=== PATIENT | female | born 1955 | race Caucasian/White ===

== ENCOUNTER 2023-06-15 09:38 | Day surgery (SDC) | payer BC, MEDICARE ==
[2023-06-15] MEDS: Polymyxin B/Trimethoprim 10 ML Bottle EYERT SCH ×4 (07:42→10:03)
[2023-06-15] MEDS: Brimonidine 0.2% Ophth Soln 5 ML Bottle EYERT SCH ×4 (07:47→10:03)
[2023-06-15] MEDS: Phenylephrine 2.5% Ophth Soln 2 ML Bot EYERT SCH ×5 (07:52→09:43)
[2023-06-15] MEDS: Tropicamide 1% Ophth Soln 3 ML Bottle EYERT SCH ×5 (07:58→08:46)
[2023-06-15] MEDS: Tetracaine HCl/PF 0.5% 4 ML Bottle EYEBOTH SCH ×5 (09:29→09:51)
[2023-06-15] MEDS: Lidocaine 1% PF 2 ML SDV INJECT SCH ×2 (09:49→09:51)
[2023-06-15] MEDS: Cefuroxime 10 MG/ML SYRINGE EYERT SCH ×2 (09:50→10:02)
[2023-06-15] MEDS: Pilocarpine 4% Ophth Soln 15 ML Bot EYERT SCH ×2 (09:50→10:03)
== END 2023-06-15 10:13 | disposition home or self-care (01) ==
LOC: JD.SDS 09:38
PROVIDERS: ATTEND Ophthalmology
DX: H25.811 Combined forms of age-related cataract, right eye (principal); I10 Essential (primary) hypertension; M19.90 Unspecified osteoarthritis, unspecified site; E78.00 Pure hypercholesterolemia, unspecified; Z79.899 Other long term (current) drug therapy
CPT/HCPCS: 66984; A9270; J0697; V2788; 00142; J3490

== ENCOUNTER 2023-07-03 08:45 | Day surgery (SDC) | payer MEDICARE ==
[~2023-07-03 08:45] MED LIST: Cefuroxime 10 MG/ML SYRINGE EYELF SCH; Lidocaine 1% PF 2 ML SDV INJECT SCH; Pilocarpine 4% Ophth Soln 15 ML Bot EYELF SCH; Tetracaine HCl/PF 0.5% 4 ML Bottle EYEBOTH SCH
[2023-07-03] MEDS: Polymyxin B/Trimethoprim 10 ML Bottle EYELF SCH ×3 (09:06→10:59)
[2023-07-03] MEDS: Brimonidine 0.2% Ophth Soln 5 ML Bottle EYELF SCH ×3 (09:08→10:59)
[2023-07-03] MEDS: Phenylephrine 2.5% Ophth Soln 2 ML Bot EYELF SCH ×5 (09:11→10:34)
[2023-07-03] MEDS: Tropicamide 1% Ophth Soln 3 ML Bottle EYELF SCH ×4 (09:15→09:41)
[2023-07-03] MEDS: Proparacaine 0.5% Ophth Soln 15 ML Bottle EYEBOTH SCH ×4 (10:20→10:45)
== END 2023-07-03 11:08 | disposition home or self-care (01) ==
LOC: JD.SDS 08:45
PROVIDERS: ATTEND Ophthalmology
DX: H25.812 Combined forms of age-related cataract, left eye (principal); H02.831 Dermatochalasis of right upper eyelid; H02.834 Dermatochalasis of left upper eyelid; H57.813 Brow ptosis, bilateral; H16.103 Unspecified superficial keratitis, bilateral; H16.223 Keratoconjunctivitis sicca, not specified as Sjogren's, bilateral; I10 Essential (primary) hypertension; Z79.899 Other long term (current) drug therapy
CPT/HCPCS: 66984; A9270; J0697; V2788; J3490

== ENCOUNTER 2025-02-02 17:57 | Emergency (ER) | payer MEDICARE, OTHER ==
[2025-02-02 18:35] LABS: APPEARANCE,URINE TURBID (Clear); GLUCOSE,URINE NEGATIVE (Negative); OCCULT BLOOD,URINE 2+ (Negative)
[2025-02-02 18:48] LABS: BASOPHILS ABSOLUTE AUTO 0.0 K/mm3 (0.0-0.2); BASOPHILS PERCENT AUTO 0.3 % (0.0-1.0); EOSINOPHILS ABSOLUTE AUTO 0.4 K/mm3 (0.0-0.4); EOSINOPHILS PERCENT AUTO 3.2 % (0.0-6.0); IMMATURE GRAN ABSOLUTE AUTO 0.03 K/mm3 (0.00-0.05); IMMATURE GRAN PERCENT AUTO 0.3 % (0.0-0.4); LYMPHOCYTES ABSOLUTE AUTO 1.6 K/mm3 (1.0-4.8); LYMPHOCYTES PERCENT AUTO 13.9 % (24.0-44.0); MEAN PLATELET VOLUME 9.5 fl (9.4-12.3); MONOCYTES ABSOLUTE AUTO 0.6 K/mm3 (0.0-0.8); MONOCYTES PERCENT AUTO 5.2 % (0.0-8.0); NEUTROPHILS ABSOLUTE AUTO 9.1 K/mm3 (1.8-7.7); NEUTROPHILS PERCENT AUTO 77.1 % (41.0-71.0); NRBC ABSOLUTE 0.00 (0.00-0.02); NRBC PERCENT 0.0 % (0.0-0.2); PLATELET COUNT,PLT 293 K/mm3 (150-400); RED BLOOD CELL COUNT 4.51 M/mm3 (4.10-5.30); WHITE BLOOD CELL COUNT,WBC 11.76 K/mm3 (3.9-11.3)
[2025-02-02 18:54] LABS: WBC CLUMPS,URINE FEW /hpf (NOT SEEN)
[2025-02-02 19:10] LABS: A/G RATIO 1.0 (1-2); ALANINE AMINOTRANSFERASE,ALT 32.0 U/L (14-59); ASPARTATE AMNIOTRANSFERASE,AST 15.0 U/L (15-37); BILIRUBIN TOTAL 0.3 mg/dL (0.2-1.0); BLOOD UREA NITROGEN,BUN 14.0 mg/dL (7-18); CARBON DIOXIDE,CO2 27.0 mEq/L (21-32); CHLORIDE,CL 104.0 mEq/L (98-107); CREATININE 0.9 mg/dL (0.55-1.02); EST CRCL DRUG DOSING (CG) 47.43 mL/min; ESTIMATED GFR 68.0 mL/min (>60); GLUCOSE RANDOM 148.0 mg/dL (70-99); POTASSIUM,K 3.1 mEq/L (3.5-5.1); PROTEIN TOTAL,TP 7.3 g/dl (6.4-8.2); SODIUM,NA 142.0 mEq/L (136-145)
[2025-02-02] MEDS ORDERED: Sodium Chloride 0.9% 10 ML Syringe FLUSH PRN (19:37)
[2025-02-02] MEDS: Sodium Chloride 0.9% 10 ML Syringe FLUSH PRN (20:08)
[2025-02-02] MEDS: Iopamidol 612 MG/ML 100 ML Bottle IVPUSH ONE (20:08)
== END 2025-02-02 20:53 | disposition home or self-care (01) ==
LOC: JD.ED 17:57
DX: N30.01 Acute cystitis with hematuria (principal); Z79.899 Other long term (current) drug therapy
CPT/HCPCS: 36415; 74177; 80053; 81001; 85025; 87086; 96374; 99284; J0696; Q9967; 99283